=== PATIENT | female | born 2000 | race Caucasian/White ===

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

== ENCOUNTER 2022-01-13 19:24 | Emergency (ER) | payer OTHER ==
[~2022-01-13 19:24] MED LIST changes: +SILVADENE,SSD C50 GM T
[2022-01-13] MEDS ORDERED: NAPROXEN250 MG PO (21:05)
== END 2022-01-13 21:17 | disposition home or self-care (01) ==
LOC: ED 19:24
DX: S93.401A Sprain of unspecified ligament of right ankle, initial encounter (principal); Z91.030 Bee allergy status; Z90.89 Acquired absence of other organs; X50.9XXA Other and unspecified overexertion or strenuous movements or postures, initial encounter; Y93.89 Activity, other specified; Y92.89 Other specified places as the place of occurrence of the external cause; Y99.8 Other external cause status

== ENCOUNTER 2022-04-27 23:52 | Emergency (ER) | payer OTHER ==
[~2022-04-27] VITALS: Ht 160 cm; Wt 68.0 kg
[~2022-04-27 23:52] MED LIST changes: +NAPROXEN250 MG PO
[2022-04-28 00:10] LABS: BASO # 0.1 10*3/uL (0.0-0.1); BASO % 0.6 % (0.0-1.0); EOS % 0.2 % (1.0-4.0); HEMATOCRIT 38.2 % (37.0-47.0); LYMPH # 1.4 10*3/uL (1.3-4.4); LYMPH % 16.2 % (27.0-41.0); MEAN CELL VOLUME 83.4 fl (81.0-99.0); MEAN CORPUSCULAR HGB 28.6 pg (27.0-31.0); MEAN CORPUSCULAR HGB CONC 34.3 g/dl (33.0-37.0); MONO # 0.7 10*3/uL (0.1-1.0); NEUT # 6.4 10*3/uL (2.3-7.9); NEUT % 74.7 % (47.0-73.0); PLATELET COUNT AUTOMATED 225 10*3/uL (130-400); RED BLOOD COUNT 4.58 10*6/uL (4.10-5.10); RED CELL DISTRI WIDTH 12.2 % (0-14.5); WHITE BLOOD COUNT 8.6 10*3/uL (4.8-10.8)
[2022-04-28 00:37] LABS: ACETAMINOPHEN (TYLENOL) < 5.0 ug/ml (10-30); ALKALINE PHOSPHATASE 40 U/L (45-117); BUN 12 mg/dl (7-24); CHLORIDE 109 mmol/L (98-107); CREATININE 0.75 mg/dL (0.55-1.02); ETHYL ALCOHOL < 3.0 mg/dl (<3); POTASSIUM 3.7 mmol/L (3.5-5.1); SGOT/AST 12 IU/L (3-35); SGPT/ALT 15 U/L (12-78); SODIUM 141 mmol/L (136-145); TOTAL PROTEIN 7.7 gm/dL (6.4-8.2)
[2022-04-28 00:52] LABS: BILIRUBIN Negative (Negative); BLOOD Trace-Lysed (Negative); CLARITY Cloudy (Clear); COLOR Yellow (Yellow); GLUCOSE Negative (Negative); KETONE 2+ (Negative); LEUKO ESTERASE Negative (Negative); NITRITE Positive (Negative); SPECIFIC GRAVITY >= 1.030 (1.001-1.030)
[2022-04-28 01:00] LABS: URINE AMPHETAMINES < 1000 (1000ng/ml); URINE BARBITURATES < 200 (200ng/ml); URINE BENZODIAZEPINES < 200 (200ng/ml); URINE CANNABINOIDS (THC) < 50 (50ng/ml); URINE COCAINE < 300 (300ng/ml); URINE METHADONE < 300 (300ng/ml); URINE OPIATES < 300 (300ng/ml)
[2022-04-28 01:01] LABS: URINE PHENCYCLIDINE < 25 (25ng/ml)
[2022-04-28 01:19] LABS: BACTERIA 4+; EPITHELIAL CELLS TNTC; WBC 0-2 wbc/hpf (0-5)
== END 2022-04-28 08:31 | disposition home or self-care (01) ==
LOC: ED 23:52
PROVIDERS: Internal Medicine
DX: F43.21 Adjustment disorder with depressed mood (principal); Z91.030 Bee allergy status; Z90.89 Acquired absence of other organs

== ENCOUNTER 2023-01-12 00:59 | Emergency (ER) | payer OTHER ==
[~2023-01-12] VITALS: Ht 160 cm; Wt 68.0 kg
[2023-01-12] MEDS ORDERED: ONDANSETRON4 MG SL (03:05)
== END 2023-01-12 03:13 | disposition home or self-care (01) ==
LOC: ED 00:59
DX: K52.9 Noninfective gastroenteritis and colitis, unspecified (principal); Z91.030 Bee allergy status; Z88.8 Allergy status to other drugs, medicaments and biological substances; Z98.890 Other specified postprocedural states

== ENCOUNTER 2023-01-31 14:06 | Emergency (ER) | payer OTHER ==
[~2023-01-31 14:06] MED LIST changes: +ONDANSETRON4 MG SL
[2023-01-31 14:59] LABS: BILIRUBIN Negative (Negative); BLOOD Negative (Negative); CLARITY Clear (Clear); COLOR Yellow (Yellow); GLUCOSE Negative (Negative); KETONE Trace (Negative); LEUKO ESTERASE Negative (Negative); NITRITE Negative (Negative); SPECIFIC GRAVITY >= 1.030 (1.001-1.030); UROBILINOGEN 0.2 E.U./dl (0.0-1.0)
[2023-01-31 15:18] LABS: BACTERIA TRACE; RBC 0-2 rbc/hpf (0-2)
== END 2023-01-31 15:19 | disposition home or self-care (01) ==
LOC: ED 14:06
PROVIDERS: Physician Assistant Medical
DX: F50.9 Eating disorder, unspecified (principal); N94.3 Premenstrual tension syndrome; Z91.030 Bee allergy status; Z88.8 Allergy status to other drugs, medicaments and biological substances; Z79.899 Other long term (current) drug therapy

== ENCOUNTER 2024-04-11 03:33 | Emergency (ER) | payer SELFPAY ==
[~2024-04-11] VITALS: Ht 152.4 cm; Wt 83.9 kg
[2024-04-11] MEDS ORDERED: Ketorolac Tromethamine 60 MG/2 ML VIAL IM ONE (03:55)
[2024-04-11] MEDS ORDERED: Amoxicillin/Clavulanate Pota 875 MG TAB PO ONE (03:55)
[2024-04-11] MEDS ORDERED: AMOX-CLAV 875-1 EACH PO (03:57)
== END 2024-04-11 04:02 | disposition home or self-care (01) ==
LOC: ED 03:33
DX: K04.7 Periapical abscess without sinus (principal); F17.210 Nicotine dependence, cigarettes, uncomplicated; Z91.030 Bee allergy status; Z91.048 Other nonmedicinal substance allergy status; Z79.899 Other long term (current) drug therapy

== ENCOUNTER 2025-04-14 15:42 | Emergency (ER) | payer OTHER, MEDICAID ==
[~2025-04-14] VITALS: Ht 160 cm; Wt 92.1 kg
[~2025-04-14 15:42] MED LIST changes: +AMOX-CLAV 875-1 EACH PO
[2025-04-14] MEDS ORDERED: PRENATAL VITAM1 EAC6 PO (15:53)
== END 2025-04-14 17:46 | disposition home or self-care (01) ==
LOC: ED 15:42
DX: Z32.01 Encounter for pregnancy test, result positive (principal); O21.8 Other vomiting complicating pregnancy; K21.9 Gastro-esophageal reflux disease without esophagitis; R10.30 Lower abdominal pain, unspecified; Z91.030 Bee allergy status